=== PATIENT | male | born 1980 | race Two or more races ===

== ENCOUNTER 2021-02-08 15:23 | Emergency (ER) | payer SELFPAY ==
[2021-02-08] MEDS ORDERED: Sodium Chloride 0.9% 2.5 ML Syringe FLUSH PRN (15:42)
[2021-02-08] MEDS ORDERED: Sodium Chloride 0.9% 10 ML Syringe FLUSH PRN (15:42)
[2021-02-08] MEDS ORDERED: Sodium Chloride 0.9% 1,000 ML IV ONE (15:43)
[2021-02-08] MEDS ORDERED: diphenhydrAMINE 50 MG/ML SDV IVPUSH ONE (15:43)
[2021-02-08] MEDS ORDERED: Metoclopramide 10 MG/2 ML SDV IVPUSH ONE (15:43)
--- NOTE | 2021-02-08 15:47 | EDM.PDOC ---
ED HPI GENERAL MEDICAL PROBLEM - General Chief Complaint: Headache Stated Complaint: BODYACHES FEVER SWETS Time Seen by Provider: 02/08/21 15:27 - History of Present Illness INITIAL COMMENTS - FREE TEXT/NARRATIVE: Otherwise well 40-year-old male presenting with headache diaphoresis fatigue cough nausea vomiting and diminished p.o. tolerance. Patient states that symptoms started approximately 1 week ago with a headache initially bilateral temporal but no radiating throughout the head. It gradually worsened and is now 7 out of 10. There is no associated neck pain or stiffness. Patient then developed a nonproductive cough nausea and vomiting with diminished p.o. intake. He has no chest pain except during the active coughing he has no abdominal pain except during the active emesis. His symptoms been present for 7 days but he last had a bowel movement 3 days ago and it was normal for him. He denies other arthralgias or myalgias. He has significant fatigue. He does have a history of headaches in the past but not for many years. No other known medical problems and no prior surgeries. Symptoms are constant they worsen with exposure to light and patient's headache does exhibit photophobia. No alleviating factors or other associated symptoms. head Pain Score (Numeric/FACES): 8 - Related Data Allergies Allergy/AdvReac Type Severity Reaction Status Date / Time No Known Allergies Allergy Verified 02/08/21 15:41 Home Meds: Home Meds Ondansetron [Zofran ODT] 4 mg PO Q8H PRN 4 Days #12 tab.dis 02/08/21 [Rx] metFORMIN [Glucophage] 02/08/21 [History] ED ROS GENERAL - Review of Systems Review Of Systems: See Below Free Text/Narrative/Comment: General: Per HPI Skin: No rash. Eyes: No vision problems. ENT: No sore throat. Neck: No neck stiffness. Respiratory: Per HPI Cardiac: No chest pain. Gastrointestinal: Per HPI Urinary: No dysuria. Musculoskeletal: No myalgias/arthralgias. Neurologic: No headache. ED EXAM, GENERAL - Physical Exam Exam: See Below Free Text/Narrative:: General Appearance: No acute distress, diaphoretic HEENT: Normocephalic/atraumatic, sclera anicteric, mucous membranes dry Neck: Normal range of motion Chest and Lungs: Bilateral breath sounds, clear to auscultation, scant wheezing with coughing Cardiovascular: Regular rate and rhythm, no murmur Abdomen: Soft, non-tender Musculoskeletal: No edema or tenderness Neurologic: Awake, alert, no obvious deficits, moving all extremities Psychiatric: Appropriate, cooperative Course - Vital Signs Last Recorded V/S: Last Vital Signs Temp 98.5 F 02/08/21 15:38 Pulse 82 02/08/21 16:29 Resp 18 02/08/21 16:29 BP 148/102 H 02/08/21 16:29 Pulse Ox 96 02/08/21 16:29 - Orders/Labs/Meds Orders: Active Orders 24 hr Category Date Time Status Sodium Chloride 0.9% [Saline Flush] Med 02/08/21 15:42 Active 10 ml FLUSH ASDIRECTED PRN Sodium Chloride 0.9% [Saline Flush] Med 02/08/21 15:42 Active 2.5 ml FLUSH ASDIRECTED PRN Saline Lock Insert [OM.PC] Stat Oth 02/08/21 15:42 Ordered Medication Orders Sodium Chloride (Sodium Chloride 0.9% 10 Ml Syringe) 10 ml FLUSH ASDIRECTED PRN PRN Reason: Keep Vein Open Last Admin: 02/08/21 16:03 Dose: 10 ml Documented by: SOMMER Sodium Chloride (Sodium Chloride 0.9% 2.5 Ml Syringe) 2.5 ml FLUSH ASDIRECTED PRN PRN Reason: Keep Vein Open Last Admin: 02/08/21 16:03 Dose: 2.5 ml Documented by: SOMMER Labs: Laboratory Tests 02/08/21 02/08/21 02/08/21 Range/Units 16:00 16:00 16:34 WBC 7.08 (4.0-11.0) K/uL RBC 4.82 (4.50-5.90) M/uL Hgb 14.9 (13.0-17.0) g/dL Hct 41.6 (38.0-50.0) % MCV 86.3 (80.0-98.0) fL MCH 30.9 (27.0-32.0) pg MCHC 35.8 (31.0-37.0) g/dL RDW Std Deviation 40.9 (28.0-62.0) fl RDW Coeff of Aicha 13 (11.0-15.0) % Plt Count 185 (150-400) K/uL MPV 11.60 (7.40-12.00) fL Neut % (Auto) 65.5 (48.0-80.0) % Lymph % (Auto) 26.7 (16.0-40.0) % Shannon % (Auto) 7.6 (0.0-15.0) % Eos % (Auto) 0.1 (0.0-7.0) % Baso % (Auto) 0.1 (0.0-1.5) % Neut # (Auto) 4.6 (1.4-5.7) K/uL Lymph # (Auto) 1.9 (0.6-2.4) K/uL Shannon # (Auto) 0.5 (0.0-0.8) K/uL Eos # (Auto) 0.0 (0.0-0.7) K/uL Baso # (Auto) 0.0 (0.0-0.1) K/uL Nucleated RBC % 0.0 /100WBC Nucleated RBCs # 0 K/uL Sodium 137 (136-148) mmol/L Potassium 3.7 (3.5-5.1) mmol/L Chloride 100 (98-107) mmol/L Carbon Dioxide 23.9 (21.0-32.0) mmol/L BUN 14 (7.0-18.0) mg/dL Creatinine 0.9 (0.8-1.3) mg/dL Est Cr Clr Drug Dosing 116.20 mL/min Estimated GFR (MDRD) > 60.0 ml/min Glucose 215 H (74-106) mg/dL Calcium 8.1 L (8.5-10.1) mg/dL Total Bilirubin 0.6 (0.2-1.0) mg/dL AST 20 (15-37) IU/L ALT 31 (14-63) IU/L Alkaline Phosphatase 93 (46-116) U/L Total Protein 7.2 (6.4-8.2) g/dL Albumin 3.4 (3.4-5.0) g/dL Globulin 3.8 (2.6-4.0) g/dL Albumin/Globulin Ratio 0.9 (0.9-1.6) Lipase 73 (73-393) U/L Influenza Type A RNA NEGATIVE (NEGATIVE) Influenza Type B RNA NEGATIVE (NEGATIVE) SARS-CoV-2 RNA (EDVIN) POSITIVE H (NEGATIVE) Meds: Medications Generic Name Dose Route Start Last Admin Trade Name Freq PRN Reason Stop Dose Admin Sodium Chloride 10 ml 02/08/21 15:42 02/08/21 16:03 Sodium Chloride 0.9% 10 Ml Syringe FLUSH 10 ml ASDIRECTED PRN Administration Keep Vein Open Sodium Chloride 2.5 ml 02/08/21 15:42 02/08/21 16:03 Sodium Chloride 0.9% 2.5 Ml Syringe FLUSH 2.5 ml ASDIRECTED PRN Administration Keep Vein Open Discontinued Medications Generic Name Dose Route Start Last Admin Trade Name Freq PRN Reason Stop Dose Admin Diphenhydramine HCl 25 mg 02/08/21 15:43 02/08/21 15:56 Diphenhydramine 50 Mg/Ml Sdv IVPUSH 02/08/21 15:44 25 mg ONETIME ONE Administration Sodium Chloride 1,000 mls @ 999 mls/hr 02/08/21 15:43 02/08/21 16:03 Normal Saline IV 02/08/21 16:43 999 mls/hr .Bolus ONE Administration Metoclopramide HCl 10 mg 02/08/21 15:43 02/08/21 15:57 Metoclopramide 10 Mg/2 Ml Sdv IVPUSH 02/08/21 15:44 10 mg ONETIME ONE Administration Departure - Departure Time of Disposition: 17:47 Disposition: Home, Self-Care 01 Condition: Good Clinical Impression: COVID-19 - Discharge Information *PRESCRIPTION DRUG MONITORING PROGRAM REVIEWED*: Not Applicable *COPY OF PRESCRIPTION DRUG MONITORING REPORT IN PATIENT JADON: Not Applicable Instructions: COVID-19 Frequently Asked Questions, 10 Things You Can Do to Manage Your COVID-19 Symptoms at Home - CDC Forms: ED Department Discharge Additional Instructions: You must self isolate at home for 7 days. The [place] [employer] should provide you with a letter clearing you from your quarantine and saying that you can go back to work. You should be receiving a call from them in the next day or so. Sepsis Event Note (ED) - Evaluation Sepsis Screening Result: Possible Sepsis Risk - Focused Exam Vital Signs: Vital Signs Temp Pulse Resp BP Pulse Ox 02/08/21 16:29 82 18 148/102 H 96 02/08/21 15:38 98.5 F 96 18 151/104 H 98 - My Orders Last 24 Hours: My Active Orders 02/08/21 15:42 Sodium Chloride 0.9% [Saline Flush] 10 ml FLUSH ASDIRECTED PRN Sodium Chloride 0.9% [Saline Flush] 2.5 ml FLUSH ASDIRECTED PRN Saline Lock Insert [OM.PC] Stat - Assessment/Plan Last 24 Hours: My Active Orders 02/08/21 15:42 Sodium Chloride 0.9% [Saline Flush] 10 ml FLUSH ASDIRECTED PRN Sodium Chloride 0.9% [Saline Flush] 2.5 ml FLUSH ASDIRECTED PRN Saline Lock Insert [OM.PC] Stat Assessment:: 40-year-old male presenting with signs and symptoms most consistent with a viral syndrome certainly COVID-19 is a consideration bacterial pneumonia is a consideration no findings of meningitis or encephalitis. Given the onset of headache no LOC prior similar headaches CT to exclude intracranial process but no concern for subarachnoid hemorrhage. No findings that would suggest UTI. SBO considered but patient is without risk factors for this. Patient has a benign abdominal exam as well which makes appendicitis and biliary pathology less likely. Could consider imaging the abdomen if there unexpected abnormalities on blood work. IV fluid given for clinical dehydration evidenced by dry mucous membranes. Patient also actively spitting into an emesis bag. Benadryl and IV Reglan ordered for headache. Labs are good. No irene or other acutely concerning finding with the exception of the patient being + for COVID-19 which explains his symptoms well. Pt's headache has improved s/p meds. His WOB is normal, VS are normal, no hypoxia, no tachycardia. Patient is felt stable for dc. Anticipatory guidance provided and return precautions and need for isolation discussed and understood.
--- NOTE | 2021-02-08 16:48 | CT ---
Indication: Headache Technique: CT of the head without contrast. Coronal and sagittal reformats. Bone and soft tissue windows. Comparison: No prior studies available for comparison at this institution. Findings: No acute intracranial hemorrhage or extra-axial collection. No evidence of acute cortical infarction. No mass effect or midline shift. Normal cerebral volume. The ventricles are normal in size, shape and contour. There is normal galeas and white matter differentiation. The orbital contents are normal. No calvarial fractures. No lytic or sclerotic osseous lesions within the calvarium or skull base. Scalp and other imaged soft tissue structures are normal. Mastoid air cells are clear. Mild mucosal thickening in the right maxillary sinus. Impression: No acute intracranial abnormality. Please note that all CT scans at this facility use dose modulation, iterative reconstruction, and/or weight-based dosing when appropriate to reduce radiation dose to as low as reasonably achievable. Dictated by Roberto Ayers MD @ 02/08/2021 4:47:[address] Roberto Ayers @ Feb 08 2021 4:47PM
[2021-02-08 17:03] LABS: BLOOD UREA NITROGEN,BUN 14 mg/dL (7.0-18.0); CARBON DIOXIDE,CO2 23.9 mmol/L (21.0-32.0); CHLORIDE,CL 100 mmol/L (98-107); GLUCOSE RANDOM 215 mg/dL (74-106); LIPASE 73 U/L (73-393); POTASSIUM,K 3.7 mmol/L (3.5-5.1); SODIUM,NA 137 mmol/L (136-148)
--- NOTE | 2021-02-08 17:07 | CR ---
INDICATION: Cough, chills. TECHNIQUE: Chest 1 view. COMPARISON: None. FINDINGS: No focal consolidation, pleural effusion, or pneumothorax. Mild reticular opacities in the right lung base and left lower lung. Normal heart size and pulmonary vascularity. The bones are unremarkable. IMPRESSION: Mild reticular opacities in the right lung base and left lower lung may be infectious/inflammatory versus atelectasis. Dictated by Abbey Persaud MD @ 02/08/2021 5:05:[address] Abbey Persaud @ Feb 08 2021 5:05PM
[2021-02-08 17:10] LABS: CORONAVIRUS COVID-19 NAA POSITIVE (NEGATIVE); INFLUENZA A NAA NEGATIVE (NEGATIVE); INFLUENZA B NAA NEGATIVE (NEGATIVE)
== END 2021-02-08 18:18 | disposition home or self-care (01) ==
LOC: MW.ED 15:23
DX: U07.1 COVID-19 (principal); Z79.84 Long term (current) use of oral hypoglycemic drugs
CPT/HCPCS: 0240U; 36415; 70450; 71045; 80053; 83690; 85025; 96374; 96375; 99284; J1200; J2765; J7030

== ENCOUNTER 2022-09-03 20:23 | Emergency (ER) | payer SELFPAY ==
[2022-09-03] MEDS ORDERED: Acetaminophen/HYDROcodone 325-10 MG Tab PO ONE ×2 (20:53→22:00)
== END 2022-09-03 22:30 | disposition home or self-care (01) ==
LOC: MW.ED 20:23
DX: S52.572A Other intraarticular fracture of lower end of left radius, initial encounter for closed fracture (principal); E11.9 Type 2 diabetes mellitus without complications; Z79.84 Long term (current) use of oral hypoglycemic drugs; W18.09XA Striking against other object with subsequent fall, initial encounter
CPT/HCPCS: 70450; 73080; 73110; 99284; A9270

== ENCOUNTER 2022-09-16 18:08 | Emergency (ER) | payer SELFPAY | END 2022-09-16 19:09 | disposition home or self-care (01) | LOC: MW.ED 18:08 | DX: Z46.89 Encounter for fitting and adjustment of other specified devices (principal); M25.532 Pain in left wrist; E11.9 Type 2 diabetes mellitus without complications; Z79.84 Long term (current) use of oral hypoglycemic drugs | CPT/HCPCS: 99283 ==